=== PATIENT | male | born 2000 | race Caucasian/White ===

== ENCOUNTER 2021-05-13 16:29 | Emergency (ER) | payer MEDICAID, SELFPAY ==
--- NOTE | 2021-05-13 | ECG_ITS ---
Test Reason : CP Blood Pressure : / mmHG Vent. Rate : 071 BPM Atrial Rate : 071 BPM P-R Int : 152 ms QRS Dur : 088 ms QT Int : 364 ms P-R-T Axes : 062 060 035 degrees QTc Int : 395 ms Normal sinus rhythm with sinus arrhythmia Normal ECG No previous ECGs available Referred By: Generic ED Physician Electronically Signed By:MEHDI MEYER
--- NOTE | ~2021-05-13 | XR_ITS ---
EXAMINATION: XR CHEST CLINICAL INFORMATION: Chest wall pain COMPARISON: None TECHNIQUE: Frontal view of the chest was obtained. FINDINGS: No significant abnormality is noted involving the heart, lungs, mediastinum, bony thorax or soft tissues. XR/XR chest 1V IMPRESSION: Unremarkable examination.
[2021-05-13 16:39] VITALS: BP 120/81; PULSE 69; RESP 16; TEMP 36.6; O2SAT 98; BMI 22.3
--- NOTE | 2021-05-13 17:38 | ED.CHESTPAIN ---
HPI - Chest Pain General Chief Complaint: Chest Pain Stated Complaint: cp Time Seen by Provider: 05/13/21 17:20 Source: patient Mode of arrival: ambulatory History of Present Illness HPI narrative: 20-year-old male with no significant past medical history presenting to the ED complaining of 2-3 days of mid sternal chest wall pain, worse with bending and palpation. Admits pain started after heavy lifting at work. Reports lifts multiple heavy boxes at work. Denies SOB, cough, fever, chills, LE edema, recent travel, cigarette smoking Related Data Previous Rx's Medication Instructions Recorded acetaminophen 500 mg tablet 500 mg PO Q6H PRN #20 tab 05/13/21 (Tylenol Extra Strength) lidocaine 5 % topical patch 1 patch TOPICAL DAILY PRN #30 ea 05/13/21 (Lidoderm) MDD remove after 12 hours naproxen 500 mg tablet 500 mg PO BID PRN 10 Days #20 tab 05/13/21 Allergies Allergy/AdvReac Type Severity Reaction Status Date / Time No Known Allergies Allergy Verified 05/13/21 16:41 Review of Systems Review of Systems: Constitutional: No Fever, No Chills, No Fatigue, No Malaise ENT/Mouth: No Ear Pain, No Nasal Congestion, No Sinus Pain, No sore throat Eyes: No Eye Pain, No Swelling, No Redness, No Foreign Body, No Discharge, No Vision Changes Cardiovascular:+ Chest Wall Pain, No SOB, No Palpitations Respiratory: No Cough, No Dyspnea Gastrointestinal: No Nausea, No Vomiting, No Diarrhea, No Abdominal pain Musculoskeletal: No joint pain, No Myalgias Skin: No Skin Lesions, No rash Neuro: No Weakness, No Numbness, No Headache Yes all other systems are reviewed and are negative [facility] Past Medical History Attestation statement: The following information was validated with the patient. Social History Social History Advance Directives: No Advance Directives Information Provided: No Physical Exam Vital Signs: Vital Signs: Last Vital Signs Temp 97.8 F 05/13/21 16:39 Pulse 69 05/13/21 16:39 Resp 16 05/13/21 16:39 BP 120/81 05/13/21 16:39 Pulse Ox 98 05/13/21 16:39 Body Mass Index 22.3 Const: General: cooperative and healthy appearing Orientation/consciousness: patient oriented x3 Limitations: no limitations HENMT: Head: Yes normal to inspection Ears: hearing grossly normal bilaterally General nose exam: Normal external nose present Face and sinus: Yes normal facial exam Eyes: General: appearance normal, both eyes and all related structures EOM: EOMs intact bilaterally Neck: Neck: Yes normal visual inspection Chest: Chest palpation & inspection: normal inspection of the chest, no crepitus and tenderness (Reproducing subjective complaint) sternum Resp: Effort & Inspection: normal respiratory effort Auscultation: clear to auscultation bilaterally, no rales, no rhonchi and no wheezes Cardio: Rate: regular rate Heart sounds: S1 normal heart sound present and S2 normal heart sound present Skin: Rashes: no rashes Wounds: no wounds Neuro: General: patient oriented x3 Gait exam (Neuro): Normal gait present Extrem: General: Yes normal to inspection, Yes no pedal edema and Yes no calf tenderness Course Course Course Narrative: -COVID-19 negative -chest x-ray is unremarkable > discussed with patient he likely has costochondritis, worrisome signs and symptoms and strict return precautions discussed, he verbalized understanding feel safe for discharge home to follow-up with his PCP MDM - Chest Pain MDM Narrative Medical decision making narrative: 20-year-old male with no significant past medical history presenting to the ED complaining of 2-3 days of mid sternal chest wall pain, worse with bending and palpation. Admits pain started after heavy lifting at work. On exam VSS, NAD/well-appearing, pain is reproducible on exam, lungs CTA, no pedal edema or calf tenderness. Likely costochondritis/MSK pain. Rule out pneumonia. Symptoms atypical for PE/ACS Plan: COVID-19 testing, CXR, EKG Medical Records Data Attestation: I reviewed the patient's medical records. Lab Data Attestation: I reviewed the patient's lab results. Labs: Lab Results 05/13/21 Range/Units 17:50 COVID-19 ([facility]) Negative (Negative) COVID-19 Clin Com See Note ECG Data ECG #1: Attestation: I personally reviewed and interpreted this ECG as follows: ECG interpretation date: 05/13/21 ECG interpretation time: 16:36 Interpretation: EKG normal sinus rhythm with a rate of 71. Nonischemic/no STEMI. QTC 395 Discharge Plan Discharge Clinical Impression: Costalchondritis Patient Disposition: Home, Self-Care Instructions: Costochondritis (ED) Additional Instructions: Your chest x-ray was unremarkable You tested negative for COVID-19 Naproxen as an anti-inflammatory/pain medication, please take with food In addition take Tylenol Lidoderm patches or numbing patches, apply to painful area You may ice your area Rest If your pain persists or worsens/becomes unbearable, if shortness of breath, or fever please return to the ED Prescriptions: New acetaminophen [Tylenol Extra Strength] 500 mg tablet 500 mg PO Q6H PRN (Reason: pain or fever) Qty: 20 RF: 0 lidocaine [Lidoderm] 5 % adhesive patch,medicated 1 patch topical DAILY MDD remove after 12 hours PRN (Reason: pain) Qty: 30 RF: 0 naproxen 500 mg tablet 500 mg PO BID PRN (Reason: pain) 10 Days Qty: 20 RF: 0 Referrals: Physician,Unknown [Primary Care Provider] - 2 days Stand Alone Forms: Work/School Release
[2021-05-13 18:13] LABS: COVID-19 Test Negative (Negative)
== END 2021-05-13 20:00 | disposition home or self-care (01) ==
PROVIDERS: Physician Assistant; Emergency Provider Internal Medicine
DX: M94.0 Chondrocostal junction syndrome [Tietze] (principal); Z20.822 Contact with and (suspected) exposure to COVID-19
CPT/HCPCS: 36415; 71045; 87635; 93005; 99283; 99284

== ENCOUNTER 2021-05-31 19:04 | Emergency (ER) | payer OTHER, MEDICAID, SELFPAY ==
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
[2021-05-31 19:10] VITALS: BP 118/72; PULSE 110; O2SAT 100
[2021-05-31 19:24] VITALS: BP 111/71; PULSE 101; RESP 16; TEMP 36.6; O2SAT 98; BMI 22.3
[2021-05-31] MEDS: Ibuprofen 600 MG TABLET PO (21:08)
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
[2021-05-31 22:43] VITALS: BP 118/68; PULSE 71; RESP 16; O2SAT 98
[2021-06-01 00:23] VITALS: BP 124/77; PULSE 80; RESP 18; TEMP 36.7; O2SAT 98
== END 2021-06-01 00:50 | disposition home or self-care (01) ==
PROVIDERS: Emergency Provider Emergency Medicine
DX: S39.011A Strain of muscle, fascia and tendon of abdomen, initial encounter (principal); S80.01XA Contusion of right knee, initial encounter; M25.561 Pain in right knee; M25.562 Pain in left knee; M79.642 Pain in left hand; M79.641 Pain in right hand; M25.551 Pain in right hip; V23.4XXA Motorcycle driver injured in collision with car, pick-up truck or van in traffic accident, initial encounter; Y93.9 Activity, unspecified; Y92.410 Unspecified street and highway as the place of occurrence of the external cause; Y99.9 Unspecified external cause status; Z79.899 Other long term (current) drug therapy
CPT/HCPCS: 73130; 73502; 73562; 73564; 99284

== ENCOUNTER 2021-11-17 23:47 | Emergency (ER) | payer MEDICAID, SELFPAY ==
[2021-11-17 23:48] VITALS: BP 125/78; PULSE 67; RESP 18; TEMP 36.8; O2SAT 100; BMI 23.0
--- NOTE | 2021-11-18 00:18 | ED.EXTPRO ---
HPI - Extremity Problem General Chief complaint: Back Pain/Injury Stated complaint: back pain Time Seen by Provider: 11/18/21 00:07 Source: patient Mode of arrival: ambulatory Limitations: no limitations History of Present Illness HPI Narrative: Patient comes with right colon spasm for last 3 days after playing basketball complaining of low back pain which is going on for long time no weakness patient able to ambulate otherwise no paresthesia Related Data Previous Rx's Medication Instructions Recorded acetaminophen 500 mg tablet 500 mg PO Q6H PRN #20 tab 05/13/21 (Tylenol Extra Strength) lidocaine 5 % topical patch 1 patch TOPICAL DAILY PRN #30 ea 05/13/21 (Lidoderm) MDD remove after 12 hours naproxen 500 mg tablet 500 mg PO BID PRN 10 Days #20 tab 05/13/21 cyclobenzaprine 10 mg tablet 10 mg PO TID PRN #20 tab 06/01/21 ibuprofen 800 mg tablet 800 mg PO Q8H PRN #30 tab 06/01/21 cyclobenzaprine 10 mg tablet 10 mg PO Q8H #20 tab 11/18/21 ibuprofen 600 mg tablet 600 mg PO Q6H PRN #20 tab 11/18/21 Allergies Allergy/AdvReac Type Severity Reaction Status Date / Time No Known Allergies Allergy Verified 11/17/21 23:48 Review of Systems Review of Systems: Yes all other systems are reviewed and are negative [facility] Social History Social History Advance Directives: No Physical Exam Vital Signs: Vital Signs: Last Vital Signs Temp 98.3 F 11/17/21 23:48 Pulse 67 11/17/21 23:48 Resp 18 11/17/21 23:48 BP 125/78 11/17/21 23:48 Pulse Ox 100 11/17/21 23:48 BMI result Body Mass Index 23.0 Appearance: Alert. Oriented X3. No acute distress. CVS: Normal heart rate and rhythm. Pulses normal. Respiratory: No respiratory distress. Equal air entry bilateral, Abdomen: Soft and nontender. Bowel sounds are present, no mass palpable, no CVA tenderness Skin: Skin warm and dry. Normal skin color. Normal skin turgor. Extremities: No lower extremity edema. No calf tenderness tenderness in the right groin area increases on adduction and flexion of right thigh back: Diffuse tenderness no focal tenderness SLR negative bilaterally Neuro: Oriented X 3. No motor deficit. No sensory deficit. Discharge Plan Discharge Clinical Impression: Strain of right psoas muscle Patient Disposition: Home, Self-Care Instructions: Groin Strain (ED) Additional Instructions: Rest to your right leg apply ice pack take pain medication and muscle relaxants as advised Prescriptions: New cyclobenzaprine 10 mg tablet 10 mg PO Q8H Qty: 20 0RF ibuprofen 600 mg tablet 600 mg PO Q6H PRN (Reason: pain) Qty: 20 0RF No Action acetaminophen [Tylenol Extra Strength] 500 mg tablet 500 mg PO Q6H PRN (Reason: pain or fever) Qty: 20 0RF lidocaine [Lidoderm] 5 % adhesive patch,medicated 1 patch topical DAILY MDD remove after 12 hours PRN (Reason: pain) Qty: 30 0RF Rx Instructions: leave on most painful area for up to 12 hrs naproxen 500 mg tablet 500 mg PO BID PRN (Reason: pain) 10 Days Qty: 20 0RF ibuprofen 800 mg tablet 800 mg PO Q8H PRN (Reason: pain) Qty: 30 0RF cyclobenzaprine 10 mg tablet 10 mg PO TID PRN (Reason: muscle spasm) Qty: 20 0RF
[2021-11-18] MEDS: Ibuprofen 600 MG TABLET PO (00:53)
[2021-11-18] MEDS: Cyclobenzaprine HCl 10 MG TABLET PO (00:53)
== END 2021-11-18 00:54 | disposition home or self-care (01) ==
PROVIDERS: Emergency Provider Internal Medicine
DX: S76.011A Strain of muscle, fascia and tendon of right hip, initial encounter (principal); X50.1XXA Overexertion from prolonged static or awkward postures, initial encounter; Y93.67 Activity, basketball; Y92.310 Basketball court as the place of occurrence of the external cause; Y99.9 Unspecified external cause status
CPT/HCPCS: 99283

== ENCOUNTER 2022-03-25 03:16 | Emergency (ER) | payer MEDICAID, SELFPAY ==
[2022-03-25 03:52] VITALS: BP 126/80; PULSE 67; RESP 20; TEMP 36.9; O2SAT 98; BMI 22.4
[2022-03-25 04:22] LABS: Strep A Nucleic Acid Negative (Negative)
[2022-03-25 04:33] LABS: COVID-19 Test Negative (Negative); IDNOW Serial# 16C4AD1C
--- NOTE | 2022-03-25 06:45 | ED_ITS ---
HPI - URI/Sore Throat General Chief Complaint: General Medical Stated Complaint: throat pain, can't swallow Time Seen by Provider: 03/25/22 06:44 Source: patient Mode of arrival: ambulatory Limitations: no limitations History of Present Illness MD elicited complaint: sore throat Onset (ago): day(s) (5) Consistency: constant Severity: severe Description of mucous: clear Able to tolerate fluids by mouth: Yes Exacerbating factors: swallowing Relieving factors: nothing Associated symptoms: denies other symptoms Treatments prior to arrival: none Related Data Previous Rx's Medication Instructions Recorded acetaminophen 500 mg tablet 500 mg PO Q6H PRN pain or fever 05/13/21 (Tylenol Extra Strength) #20 tabs lidocaine 5 % topical patch 1 patch topical DAILY PRN pain #30 05/13/21 (Lidoderm) ea naproxen 500 mg tablet 500 mg PO BID PRN pain 10 days #20 05/13/21 tabs cyclobenzaprine 10 mg tablet 10 mg PO TID PRN muscle spasm #20 06/01/21 tabs ibuprofen 800 mg tablet 800 mg PO Q8H PRN pain #30 tabs 06/01/21 cyclobenzaprine 10 mg tablet 10 mg PO Q8H #20 tabs 11/18/21 ibuprofen 600 mg tablet 600 mg PO Q6H PRN pain #20 tabs 11/18/21 amoxicillin 500 mg capsule 500 mg PO BID 7 days #14 caps 03/25/22 Allergies Allergy/AdvReac Type Severity Reaction Status Date / Time No Known Allergies Allergy Verified 11/17/21 23:48 Review of Systems Review of Systems: Constitutional : No Fever, No Chills ENT/Mouth : pos sore throat, No Rhinorrhea Eyes: No Eye Pain, No Swelling, No Redness Cardiovascular : No Chest Pain, No SOB Respiratory : No Cough, No Sputum, No Wheezing Gastrointestinal : No Nausea, No Vomiting, No Diarrhea Genitourinary : No Dysuria, No Urinary Frequency, No Hematuria, Musculoskeletal : No joint pain, No Myalgias, No Joint Swelling Skin : No Skin Lesions, No rash Neuro : No Weakness, No Numbness, No Dizziness, No Headache Psych : No Anxiety/Panic, No Depression All other systems reviewed and are negative [facility] Past Medical History Attestation statement: The following information was validated with the patient. Medical History No pertinent past medical history Social History Social History (Updated 03/25/22 @ 07:08 by Ellen Moran DO) Patient Tobacco Use Status: Never used Tobacco Advance Directives: No Advance Directives Information Provided: No Physical Exam Vital Signs: Vital Signs: Last Vital Signs Temp 98.4 F 03/25/22 03:52 Pulse 67 03/25/22 03:52 Resp 20 03/25/22 03:52 BP 126/80 03/25/22 03:52 Pulse Ox 98 03/25/22 03:52 O2 Del Method 03/25/22 03:52 BMI result Body Mass Index 22.4 Appearance: Alert. Oriented X3. No acute distress. Eyes: Pupils equal, round and reactive to light. ENT: Pharynx moderate bilateral tonsilar swelling no exudates, marked erythema, uvula midline - tolerating secretions Neck: Normal inspection. Neck supple. full ROM CVS: Normal heart rate and rhythm. Pulses normal. Respiratory: No respiratory distress. Breath sounds normal. Abdomen: Soft and nontender. Skin: Skin warm and dry. Normal skin color. Normal skin turgor. Extremities: No lower extremity edema. No calf ttp Neuro: Oriented X 3. No motor deficit. No sensory deficit. MDM - URI/Sore Throat MDM Narrative Medical decision making narrative: 21 yo male with no sig PMH here with c/o sore throat - covid and strep negative, no signs of [employer] on exam. Will send off mono test if negative will treat for pharngitis - dispo per results and findings. Lab Data Labs: Lab Results 03/25/22 03/25/22 03/25/22 Range/Units 03:57 04:02 07:00 COVID-19 ([facility]) Negative (Negative) COVID-19 Clin Com See Note Monoscreen Negative (Negative) S. pyogenes GrpA AUNG Negative (Negative) Discharge Plan Discharge Clinical Impression: Pharyngitis Patient Disposition: Home, Self-Care Instructions: Pharyngitis (ED) Additional Instructions: return to ED for any worsening symptoms or concerns COVID flu and MONO were NEGATIVE Prescriptions: New amoxicillin 500 mg capsule 500 mg PO BID 7 Days Qty: 14 0RF No Action acetaminophen [Tylenol Extra Strength] 500 mg tablet 500 mg PO Q6H PRN (Reason: pain or fever) Qty: 20 0RF lidocaine [Lidoderm] 5 % adhesive patch,medicated 1 patch topical DAILY MDD remove after 12 hours PRN (Reason: pain) Qty: 30 0RF Rx Instructions: leave on most painful area for up to 12 hrs naproxen 500 mg tablet 500 mg PO BID PRN (Reason: pain) 10 Days Qty: 20 0RF ibuprofen 800 mg tablet 800 mg PO Q8H PRN (Reason: pain) Qty: 30 0RF cyclobenzaprine 10 mg tablet 10 mg PO TID PRN (Reason: muscle spasm) Qty: 20 0RF cyclobenzaprine 10 mg tablet 10 mg PO Q8H Qty: 20 0RF ibuprofen 600 mg tablet 600 mg PO Q6H PRN (Reason: pain) Qty: 20 0RF Stand Alone Forms: Work/School Release
[2022-03-25 07:32] LABS: Monotest Negative (Negative)
== END 2022-03-25 07:42 | disposition home or self-care (01) ==
PROVIDERS: Emergency Provider Emergency Medicine
DX: J02.9 Acute pharyngitis, unspecified (principal); Z20.822 Contact with and (suspected) exposure to COVID-19
CPT/HCPCS: 36415; 86308; 87635; 87651; 99283; 99284

== ENCOUNTER 2023-04-21 00:50 | Emergency (ER) | payer OTHER, SELFPAY ==
[2023-04-21 00:57] VITALS: BP 124/80; PULSE 57; RESP 20; TEMP 36.4; O2SAT 98; BMI 23.7
[2023-04-21 01:58] LABS: Hematocrit 44.8 % (42.0-52.0); Hemoglobin 15.4 g/dl (14.0-18.0); Mean Corpuscular HGB Conc 34.4 g/dl (31.0-36.0); Mean Corpuscular Hemoglobin 29.2 pg (27.0-33.0); Mean Platelet Volume 10.1 fL (9.4-12.4); Platelet Count 187 X10*3/uL (160-400); Red Blood Count 5.27 X10*6/uL (4.60-5.80); Red Cell Distribution Width 12.4 % (11.0-16.0); White Blood Count 6.1 X10*3/uL (4.8-10.8)
[2023-04-21] MEDS: Ketorolac Tromethamine 15 MG/ML VIAL IVPUSH (01:58)
[2023-04-21] MEDS: ondansetron HCL 4 MG/2 ML VIAL IVPUSH (01:58)
[2023-04-21] MEDS: Lactated Ringers 1,000 ML 999 ML IV (02:03)
--- NOTE | 2023-04-21 02:10 | ED_ITS ---
HPI - Abdominal Pain General Chief Complaint: Abdominal Pain Stated Complaint: gen med Time Seen by Provider: 04/21/23 01:42 Source: patient Mode of arrival: ambulatory Limitations: no limitations History of Present Illness HPI narrative: nausea diarrhea abdominal cramps one hour after eating anh friend chicken no fevers no blood in stool MD elicited complaint: abdominal pain Pertinent past history: none Onset (ago): hour(s) (1) Pain Consistency: intermittent Location: diffuse Severity: mild Quality: cramping Radiation: none Migration to: no migration Exacerbating factors: eating Relieving factors: nothing Context: possible food poisoning Associated symptoms: nausea and diarrhea Related Data Previous Rx's Medication Instructions Recorded acetaminophen 500 mg tablet 500 mg PO Q6H PRN pain or fever 05/13/21 (Tylenol Extra Strength) #20 tabs lidocaine 5 % topical patch 1 patch topical DAILY PRN pain #30 05/13/21 (Lidoderm) ea naproxen 500 mg tablet 500 mg PO BID PRN pain 10 days #20 05/13/21 tabs cyclobenzaprine 10 mg tablet 10 mg PO TID PRN muscle spasm #20 06/01/21 tabs ibuprofen 800 mg tablet 800 mg PO Q8H PRN pain #30 tabs 06/01/21 cyclobenzaprine 10 mg tablet 10 mg PO Q8H #20 tabs 11/18/21 ibuprofen 600 mg tablet 600 mg PO Q6H PRN pain #20 tabs 11/18/21 amoxicillin 500 mg capsule 500 mg PO BID 7 days #14 caps 03/25/22 ondansetron 4 mg disintegrating 4 mg PO Q8H PRN nausea and 04/21/23 tablet vomiting #20 tabs Allergies Allergy/AdvReac Type Severity Reaction Status Date / Time No Known Allergies Allergy Verified 11/17/21 23:48 Review of Systems Review of Systems Constitutional : No Weight loss, No Fever, No Chills ENT/Mouth : No sore throat, No Rhinorrhea Eyes: No Swelling, No Redness Cardiovascular : No Chest Pain, No SOB, NoEdema Respiratory : No Cough, No Sputum, No Wheezing Gastrointestinal : Positive Nausea, no Vomiting, positive Diarrhea, positive abdominal Pain, No Hematochezia, No Melena Genitourinary : No Dysuria, No Urinary Frequency, No Hematuria, No Urgency Musculoskeletal : No joint pain, No Myalgias, No Joint Swelling Skin : No Skin Lesions, No rash Neuro : No Weakness, No Numbness, No Dizziness, No Headache All other systems reviewed and are negative. [facility] Past Medical History Attestation statement: The following information was validated with the patient. Medical History No pertinent past medical history Social History Social History Patient Tobacco Use Status: Never used Tobacco Advance Directives: No Advance Directives Information Provided: No Physical Exam ED Vital Signs: Vital Signs - 24 hr 04/21/23 00:57 Temperature 97.5 F Pulse Rate 57 Respiratory Rate 20 Blood Pressure 124/80 Pulse Oximetry 98 Oxygen Delivery Method Room Air BMI result Body Mass Index 23.7 Appearance: Alert. Oriented X3. No acute distress. Eyes: Pupils equal, round and reactive to light. ENT: Pharynx normal. Neck: Normal inspection. Neck supple. CVS: Normal heart rate and rhythm. Pulses normal. Respiratory: No respiratory distress. Breath sounds normal. Abdomen: Soft and nontender. Skin: Skin warm and dry. Normal skin color. Normal skin turgor. Extremities: No lower extremity edema. No calf ttp Neuro: Oriented X 3. No motor deficit. No sensory deficit. Course Course Course Narrative: feels better stable for DC Medical Decision Making Medical Decision Making MDM Narrative: 22 yo male with no sig PMH here with nausea and diarrhea post eating fried chicken 1 hour later - at this time not toxic, no localized pain, no bloody stools and no fevers - stable for DC if labs stable, supportive medications ordered suspect food toxicity vs viral syndrome. Differential Diagnosis Differential Diagnoses: The differential diagnosis associated with the presentation includes food poisoning, gastritis, viral syndrome Admission/Observation Consideration of admission/observation: Escalation of care including admissi on/observation considered labs and VS stable, tolerating PO can be DC home Lab Data [facility] Lab Attestation statement: I reviewed the patient's lab results. 04/21/23 01:53 04/21/23 01:53 Labs: Lab Results 04/21/23 04/21/23 Range/Units 01:53 01:53 WBC 6.1 (4.8-10.8) X10*3/uL RBC 5.27 (4.60-5.80) X10*6/uL Hgb 15.4 (14.0-18.0) g/dl Hct 44.8 (42.0-52.0) % MCV 85.0 (80.0-98.0) fL MCH 29.2 (27.0-33.0) pg MCHC 34.4 (31.0-36.0) g/dl RDW 12.4 (11.0-16.0) % Plt Count 187 (160-400) X10*3/uL MPV 10.1 (9.4-12.4) fL Absolute Nucleated RBC 0.000 (0.0-0.012) X10*3/uL Nucleated RBC % (auto) 0.0 (0.0-0.2) /100WBC Sodium 141 (135-145) mmol/L Potassium 3.9 (3.3-5.1) mmol/L Chloride 108 (96-108) mmol/L Carbon Dioxide 23 (22-29) mmol/L Anion Gap 14 (12-20) BUN 7 L (9-16) mg/dL Creatinine 0.83 (0.5-1.4) mg/dL Estim Creat Clear Calc 150.6 Estimated GFR > 60 Random Glucose 91 (60-115) mg/dL Calcium 9.7 (8.4-10.2) mg/dL Total Bilirubin 0.5 (0.0-1.0) mg/dL AST 18 (5-37) U/L ALT 11 (0-40) U/L Alkaline Phosphatase 95 (39-117) U/L Total Protein 7.6 (6.5-8.0) g/dL Albumin 4.6 (3.5-5.0) g/dL Lipase 34 (8-78) U/L External Record Review External record reviewed: Inpatient record Prescription Management I considered prescription management with: Other (zofran) Medications Administered Generic Name Dose Route Start Last Admin Trade Name Freq PRN Reason Stop Dose Admin Lactated Ringer's 1,000 mls @ 999 mls/hr 04/21/23 02:00 04/21/23 02:03 Lr IV 04/21/23 03:00 999 mls/hr .Q1H1M LILLIANA Administration Discontinued Medications Generic Name Dose Route Start Last Admin Trade Name Freq PRN Reason Stop Dose Admin Ketorolac Tromethamine 15 mg 04/21/23 01:46 04/21/23 01:58 Ketorolac Tromethamine 15 Mg/Ml Vial IVPUSH 04/21/23 01:47 15 mg ONCE ONE Administration Ondansetron HCl 4 mg 04/21/23 01:46 04/21/23 01:58 Ondansetron Hcl 4 Mg/2 Ml Vial IVPUSH 04/21/23 01:47 4 mg ONCE ONE Administration Discharge Plan Discharge Clinical Impression: Nausea Diarrhea Qualifiers: Diarrhea type: presumed infectious Qualified Code(s): R19.7 - Diarrhea, unspecified Patient Disposition: Home, Self-Care Instructions: Acute Nausea and Vomiting (ED), Acute Diarrhea (ED) Additional Instructions: return for fevers, vomiting, bloody stools, inability to eat or drinking, worsenign pain or any other concerns. advance diet slowly over next 48 hours Prescriptions: New ondansetron 4 mg tablet,disintegrating 4 mg PO Q8H PRN (Reason: nausea and vomiting) Qty: 20 0RF No Action acetaminophen [Tylenol Extra Strength] 500 mg tablet 500 mg PO Q6H PRN (Reason: pain or fever) Qty: 20 0RF lidocaine [Lidoderm] 5 % adhesive patch,medicated 1 patch topical DAILY MDD remove after 12 hours PRN (Reason: pain) Qty: 30 0RF Rx Instructions: leave on most painful area for up to 12 hrs naproxen 500 mg tablet 500 mg PO BID PRN (Reason: pain) 10 Days Qty: 20 0RF ibuprofen 800 mg tablet 800 mg PO Q8H PRN (Reason: pain) Qty: 30 0RF cyclobenzaprine 10 mg tablet 10 mg PO TID PRN (Reason: muscle spasm) Qty: 20 0RF cyclobenzaprine 10 mg tablet 10 mg PO Q8H Qty: 20 0RF ibuprofen 600 mg tablet 600 mg PO Q6H PRN (Reason: pain) Qty: 20 0RF amoxicillin 500 mg capsule 500 mg PO BID 7 Days Qty: 14 0RF
[2023-04-21 02:11] LABS: Alanine Aminotransferase 11 U/L (0-40); Albumin Level 4.6 g/dL (3.5-5.0); Alkaline Phosphatase 95 U/L (39-117); Anion Gap 14 (12-20); Aspartate Amino Transferase 18 U/L (5-37); Bilirubin Total 0.5 mg/dL (0.0-1.0); Blood Urea Nitrogen 7 mg/dL (9-16); Calcium 9.7 mg/dL (8.4-10.2); Carbon Dioxide 23 mmol/L (22-29); Chloride 108 mmol/L (96-108); Creatinine Clr Calc Pharmacy 150.6; Estimated Glomerular Filt Rate > 60; Glucose Random 91 mg/dL (60-115); Lipase 34 U/L (8-78); Potassium 3.9 mmol/L (3.3-5.1); Sodium 141 mmol/L (135-145); Total Protein 7.6 g/dL (6.5-8.0)
== END 2023-04-21 02:51 | disposition home or self-care (01) ==
PROVIDERS: Emergency Provider Emergency Medicine
DX: R19.7 Diarrhea, unspecified (principal); R11.2 Nausea with vomiting, unspecified; Z79.899 Other long term (current) drug therapy
CPT/HCPCS: 36415; 80053; 83690; 85027; 96361; 96374; 96375; 99283; 99284; J1885; J2405

== ENCOUNTER 2023-07-20 16:26 | Emergency (ER) | payer OTHER, SELFPAY ==
--- NOTE | ~2023-07-20 | XR_ITS ---
EXAMINATION: XR CERVICAL SPINE CLINICAL INFORMATION: Neck pain COMPARISON: None available. TECHNIQUE: 3 views of the cervical spine were obtained. FINDINGS: There is reversal of the normal cervical lordosis. No prevertebral soft tissue swelling, fractures or subluxations are seen. Disc spaces and vertebral body heights are well-maintained. XR/XR cervical spine 3V IMPRESSION: Reversal of normal cervical lordosis. No acute finding.
[2023-07-20 16:36] VITALS: BP 142/80; PULSE 70; RESP 18; TEMP 36.9; O2SAT 100; BMI 24.4
--- NOTE | 2023-07-20 16:36 | ED.NECK ---
HPI - Neck Pain/Injury General Chief Complaint: Neck Pain/Injury Stated Complaint: Neck pain Time Seen by Provider: 07/20/23 18:14 Source: patient Mode of arrival: ambulatory Limitations: no limitations History of Present Illness HPI Narrative: Patient comes to the emergency room complaining of bilateral neck pain and bilateral suprascapular pain. Patient states that the pain started after weightlifting. Patient denies any numbness or tingling to upper or lower extremities. Patient took Tylenol without any relief. Patient denies headache Related Data Previous Rx's Medication Instructions Recorded acetaminophen 500 mg tablet 500 mg PO Q6H PRN pain or fever 05/13/21 (Tylenol Extra Strength) #20 tabs lidocaine 5 % topical patch 1 patch topical DAILY PRN pain #30 05/13/21 (Lidoderm) ea naproxen 500 mg tablet 500 mg PO BID PRN pain 10 days #20 05/13/21 tabs cyclobenzaprine 10 mg tablet 10 mg PO TID PRN muscle spasm #20 06/01/21 tabs ibuprofen 800 mg tablet 800 mg PO Q8H PRN pain #30 tabs 06/01/21 cyclobenzaprine 10 mg tablet 10 mg PO Q8H #20 tabs 11/18/21 ibuprofen 600 mg tablet 600 mg PO Q6H PRN pain #20 tabs 11/18/21 amoxicillin 500 mg capsule 500 mg PO BID 7 days #14 caps 03/25/22 ondansetron 4 mg disintegrating 4 mg PO Q8H PRN nausea and 04/21/23 tablet vomiting #20 tabs cyclobenzaprine 10 mg tablet 10 mg PO TID PRN muscle spasm #10 07/20/23 tabs ibuprofen 600 mg tablet 600 mg PO Q8H PRN fever or pain 07/20/23 #14 tabs Allergies Allergy/AdvReac Type Severity Reaction Status Date / Time No Known Allergies Allergy Verified 11/17/21 23:48 Review of Systems Review of Systems: Constitutional : No Weight loss, No Fever, No Chills, No Night Sweats, No Fatigue, No Malaise ENT/Mouth : No Hearing loss, No Ear Pain, No Nasal Congestion, No Sinus Pain, No Hoarseness, No sore throat, No Rhinorrhea, No Swallowing Difficulty Eyes: No Eye Pain, No Swelling, No Redness, No Foreign Body, No Discharge, No Vision Changes Cardiovascular : No Chest Pain, No SOB, No Dyspnea on Exertion, No Orthopnea, No Edema, No Palpitations Respiratory : No Cough, No Sputum, No Wheezing, No Smoke Exposure, No Dyspnea Gastrointestinal : No Nausea, No Vomiting, No Diarrhea, No Constipation, No abdominal Pain, No Hematochezia, No Melena Genitourinary : no irregular bleeding, No Dysuria, No Urinary Frequency, No Hematuria, No Urinary Incontinence, No Urgency, No Flank Pain, No Urinary Flow Changes, No Hesitancy Musculoskeletal : Complaining of musculoskeletal pain bilateral neck and bilateral scapular pain, No joint pain, No Myalgias, No Joint Swelling Skin : No Skin Lesions, No rash Neuro : No Weakness, No Numbness, No Paresthesias, No Loss of Consciousness, No Dizziness, No Headache Psych : No Anxiety/Panic, No Depression, No SI/HI/AH/VH, No Social Issues, Heme/Lymph: No Bruising, No Bleeding,No Lymphadenopathy Endocrine : No Polyuria, No Polydipsia, No Temperature Intolerance PMFSH Past Medical History Medical History No pertinent past medical history Social History Social History Patient Tobacco Use Status: Never used Tobacco Smoked in Last 30 Days: No Use of substances other than those prescribed or required for medical reasons: No Advance Directives: No Advance Directives Information Provided: No Physical Exam Vital Signs: Vital Signs: Last Vital Signs Temp 98.4 F 07/20/23 16:36 Pulse 70 07/20/23 16:36 Resp 18 07/20/23 16:36 BP 142/80 H 07/20/23 16:36 Pulse Ox 100 07/20/23 16:36 O2 Del Method Room Air 07/20/23 16:36 BMI result Body Mass Index 24.4 Const: Other: Appearance: Alert. Oriented X3. No acute distress. Well-appearing Eyes: Pupils equal, round and reactive to light. ENT: Pharynx normal. Neck: Normal inspection. Neck supple. No lymph nodes noted. No crepitus, no C-spine tenderness, no palpable step-offs CVS: Normal heart rate and rhythm. Pulses normal. Normal S1 and S2 Respiratory: No respiratory distress. Breath sounds normal. No Wheezing. No rales Abdomen: Soft and nontender. No rigidity. No distention. Skin: Skin warm and dry. Normal skin color. Normal skin turgor. Musculoskeletal: Pain to palpation in the trapezius distribution bilaterally Extremities: No lower extremity edema. No Lacerations. No Rash Neuro: Oriented X 3. No motor deficit. No sensory deficit. Moving all extremities. No slurred speech. CN 2 through 12 grossly intact Psych: calm, cooperative, normal affect Course Course Course Narrative: This is an RME: Additional HPI, ROS, PE not included below will be deferred to primary provider. Patient is a 22 old male who presents emergency department for evaluation of neck pain. Reports onset of symptoms at 0400 after working out, was lifing weights, felt a pop in the neck, pain is felt diffusely throughout the neck, to the bilateral shoulders, subjective weakness to both hands. Did not take any OTC pain medication [employer]. Reports pain 20/10. TTP throughout posterior neck and paraspinal/trapezius muscles Plan: pain management, XR Medications Administered Discontinued Medications Generic Name Dose Route Start Last Admin Trade Name Dar PRN Reason Stop Dose Admin Acetaminophen 975 mg 07/20/23 16:39 07/20/23 16:41 Acetaminophen 325 Mg Tablet PO 07/20/23 16:40 975 mg ONCE ONE Administration Ibuprofen 600 mg 07/20/23 16:39 07/20/23 16:41 Ibuprofen 600 Mg Tablet PO 07/20/23 16:40 600 mg ONCE ONE Administration Medical Decision Making Medical Decision Making [facility] Narrative: -my interpretation of x-ray of the neck, no acute abnormalities Differential Diagnosis Differential Diagnoses: The differential diagnosis associated with the presentation includes (Cervical spine strain, musculoskeletal pain,) Independent Interpretation I performed an independent interpretation of an: Plain X-Ray Radiology Impression Discussion of test interpretation with radiology: I have reviewed the radiologist's reading. Radiologist Impression: FINDINGS: There is reversal of the normal cervical lordosis. No prevertebral soft tissue swelling, fractures or subluxations are seen. Disc spaces and vertebral body heights are well-maintained. XR/XR cervical spine 3V IMPRESSION: Reversal of normal cervical lordosis. No acute finding. Discharge Plan Discharge Clinical Impression: Musculoskeletal strain Patient Disposition: Home, Self-Care Instructions: Musculoskeletal Pain (ED) Additional Instructions: Please follow-up with your primary care physician tomorrow. If you have any worsening or new symptoms, please return to the emergency room or call 911 Prescriptions: New ibuprofen 600 mg tablet 600 mg PO Q8H PRN (Reason: fever or pain) Qty: 14 0RF cyclobenzaprine 10 mg tablet 10 mg PO TID PRN (Reason: muscle spasm) Qty: 10 0RF Rx Instructions: Do not use this medication before working or driving No Action acetaminophen [Tylenol Extra Strength] 500 mg tablet 500 mg PO Q6H PRN (Reason: pain or fever) Qty: 20 0RF lidocaine [Lidoderm] 5 % adhesive patch,medicated 1 patch topical DAILY MDD remove after 12 hours PRN (Reason: pain) Qty: 30 0RF Rx Instructions: leave on most painful area for up to 12 hrs naproxen 500 mg tablet 500 mg PO BID PRN (Reason: pain) 10 Days Qty: 20 0RF ibuprofen 800 mg tablet 800 mg PO Q8H PRN (Reason: pain) Qty: 30 0RF cyclobenzaprine 10 mg tablet 10 mg PO TID PRN (Reason: muscle spasm) Qty: 20 0RF cyclobenzaprine 10 mg tablet 10 mg PO Q8H Qty: 20 0RF ibuprofen 600 mg tablet 600 mg PO Q6H PRN (Reason: pain) Qty: 20 0RF amoxicillin 500 mg capsule 500 mg PO BID 7 Days Qty: 14 0RF ondansetron 4 mg tablet,disintegrating 4 mg PO Q8H PRN (Reason: nausea and vomiting) Qty: 20 0RF
[2023-07-20] MEDS: Acetaminophen 325 MG TABLET 975 MG PO (16:41)
[2023-07-20] MEDS: Ibuprofen 600 MG TABLET PO (16:41)
--- NOTE | 2023-07-20 18:58 | PC.NURSE ---
Patient presenting with neck, shoulder, and back pain that started this morning at approximately 4 am. Patient had not taken any medications until given ibuprofen in ED. Patient calm and cooperative, answering questions appropriately.
[2023-07-20 21:02] VITALS: BP 118/72; PULSE 56; RESP 19; O2SAT 100
== END 2023-07-20 21:04 | disposition home or self-care (01) ==
PROVIDERS: Emergency Provider Emergency Medicine
DX: S16.1XXA Strain of muscle, fascia and tendon at neck level, initial encounter (principal); X50.0XXA Overexertion from strenuous movement or load, initial encounter; Y93.B3 Activity, free weights; Y92.9 Unspecified place or not applicable; Y99.9 Unspecified external cause status
CPT/HCPCS: 72040; 99283; 99284

== ENCOUNTER 2023-12-14 18:27 | Emergency (ER) | payer OTHER, SELFPAY ==
--- NOTE | ~2023-12-14 | XR_ITS ---
EXAMINATION: XR FOOT, LEFT CLINICAL INFORMATION: Pain. COMPARISON: None available. TECHNIQUE: AP, lateral, and oblique views of the left foot. FINDINGS: No fracture or subluxation. Mild hallux valgus deformity with trace joint space narrowing and subcortical sclerosis of the first MTP. No significant soft tissue abnormality. XR/XR foot LT min 3V IMPRESSION: 1. No acute fractures or malalignment. 2. 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
[2023-12-14 19:09] VITALS: BP 116/76; PULSE 69; RESP 18; TEMP 37; O2SAT 99; BMI 23.1
--- NOTE | 2023-12-14 19:09 | ED.EXTPRO ---
HPI - Extremity Problem General Chief complaint: Extremity Problem Stated complaint: left foot pain/couple months getting worse Related Data Previous Rx's ?Medication ?Instructions ?Recorded acetaminophen 500 mg tablet 500 mg PO Q6H PRN pain or fever 05/13/21 (Tylenol Extra Strength) #20 tabs lidocaine 5 % topical patch 1 patch topical DAILY PRN pain #30 05/13/21 (Lidoderm) ea naproxen 500 mg tablet 500 mg PO BID PRN pain 10 days #20 05/13/21 tabs cyclobenzaprine 10 mg tablet 10 mg PO TID PRN muscle spasm #20 06/01/21 tabs ibuprofen 800 mg tablet 800 mg PO Q8H PRN pain #30 tabs 06/01/21 cyclobenzaprine 10 mg tablet 10 mg PO Q8H #20 tabs 11/18/21 ibuprofen 600 mg tablet 600 mg PO Q6H PRN pain #20 tabs 11/18/21 amoxicillin 500 mg capsule 500 mg PO BID 7 days #14 caps 03/25/22 ondansetron 4 mg disintegrating 4 mg PO Q8H PRN nausea and 04/21/23 tablet vomiting #20 tabs cyclobenzaprine 10 mg tablet 10 mg PO TID PRN muscle spasm #10 07/20/23 tabs ibuprofen 600 mg tablet 600 mg PO Q8H PRN fever or pain 07/20/23 #14 tabs Allergies Allergy/AdvReac Type Severity Reaction Status Date / Time No Known Allergies Allergy Verified 11/17/21 23:48 PMFSH Past Medical History Medical History No pertinent past medical history Social History Social History Patient Tobacco Use Status: Never used Tobacco Advance Directives: No Advance Directives Information Provided: No Physical Exam Vital Signs: Vital Signs: Last Vital Signs Temp 98.6 F 12/14/23 19:09 Pulse 69 12/14/23 19:09 Resp 18 12/14/23 19:09 BP 116/76 12/14/23 19:09 Pulse Ox 99 12/14/23 19:09 O2 Del Method Room Air 12/14/23 19:09 BMI result Body Mass Index 23.1 Course Course Course Narrative: This is a Rapid Medical Examination (RME) in triage, full HPI, ROS, assessment and plan per primary provider in the Main ED. Azeem is a 22 year old male presenting today for evaluation for left plantar pain worsening over the past week. Reports that he has had this pain for over a year. Works on his feet daily. Pain occasionally travels up his left lower extremity. Pain is exacerbated with use of basketball shoes. Plan: x ray of left foot Discharge Plan Discharge Clinical Impression: Chronic foot pain Patient Disposition: Left W/O Completing Treatment Prescriptions: No Action acetaminophen [Tylenol Extra Strength] 500 mg tablet 500 mg PO Q6H PRN (Reason: pain or fever) Qty: 20 0RF lidocaine [Lidoderm] 5 % adhesive patch,medicated 1 patch topical DAILY MDD remove after 12 hours PRN (Reason: pain) Qty: 30 0RF Rx Instructions: leave on most painful area for up to 12 hrs naproxen 500 mg tablet 500 mg PO BID PRN (Reason: pain) 10 Days Qty: 20 0RF ibuprofen 800 mg tablet 800 mg PO Q8H PRN (Reason: pain) Qty: 30 0RF cyclobenzaprine 10 mg tablet 10 mg PO TID PRN (Reason: muscle spasm) Qty: 20 0RF cyclobenzaprine 10 mg tablet 10 mg PO Q8H Qty: 20 0RF ibuprofen 600 mg tablet 600 mg PO Q6H PRN (Reason: pain) Qty: 20 0RF amoxicillin 500 mg capsule 500 mg PO BID 7 Days Qty: 14 0RF ondansetron 4 mg tablet,disintegrating 4 mg PO Q8H PRN (Reason: nausea and vomiting) Qty: 20 0RF ibuprofen 600 mg tablet 600 mg PO Q8H PRN (Reason: fever or pain) Qty: 14 0RF cyclobenzaprine 10 mg tablet 10 mg PO TID PRN (Reason: muscle spasm) Qty: 10 0RF Rx Instructions: Do not use this medication before working or driving Discharge Date/Time: 12/15/23 01:30 Print Language: Tristanian
== END 2023-12-15 01:30 | disposition left against medical advice (07) ==
LOC: HO.ED 12-15 01:28
PROVIDERS: Emergency Provider Emergency Medicine
DX: M79.672 Pain in left foot (principal); G89.29 Other chronic pain
CPT/HCPCS: 73630; 99281; 99283

== ENCOUNTER 2024-01-12 17:02 | Emergency (ER) | payer OTHER, SELFPAY ==
--- NOTE | ~2024-01-12 | XR_ITS ---
EXAMINATION: XR FOOT, LEFT CLINICAL INFORMATION: Pain COMPARISON: Previous x-ray December 2023 TECHNIQUE: AP, lateral, and oblique views of the left foot. FINDINGS: Mild hallux valgus deformity at the first MTP joint. Bone alignment is otherwise normal. No fracture or dislocation. Joint spaces are otherwise normal. Soft tissues are normal. XR/XR foot LT min 3V IMPRESSION: Mild hallux valgus deformity at the first MTP joint.
[2024-01-12 17:33] VITALS: BP 112/69; PULSE 70; RESP 18; TEMP 36.3; O2SAT 96; BMI 23.3
--- NOTE | 2024-01-12 17:34 | ED_ITS ---
HPI - General Adult General Chief complaint: Extremity Injury, Lower Stated complaint: L foot pain Time Seen by Provider: 01/12/24 18:31 Source: patient Mode of arrival: ambulatory Limitations: no limitations History of Present Illness HPI narrative: 23-year-old male presented right foot pain for few months, pain is localized to the bottom of the foot more with walking, pain is worse early in the morning when he gets out of bed taking the 1st steps on his sole, patient has been trying ice and elevation with no relief. No foot trauma or injury. Related Data Previous Rx's ?Medication ?Instructions ?Recorded acetaminophen 500 mg tablet 500 mg PO Q6H PRN pain or fever 05/13/21 (Tylenol Extra Strength) #20 tabs lidocaine 5 % topical patch 1 patch topical DAILY PRN pain #30 05/13/21 (Lidoderm) ea naproxen 500 mg tablet 500 mg PO BID PRN pain 10 days #20 05/13/21 tabs cyclobenzaprine 10 mg tablet 10 mg PO TID PRN muscle spasm #20 06/01/21 tabs ibuprofen 800 mg tablet 800 mg PO Q8H PRN pain #30 tabs 06/01/21 cyclobenzaprine 10 mg tablet 10 mg PO Q8H #20 tabs 11/18/21 ibuprofen 600 mg tablet 600 mg PO Q6H PRN pain #20 tabs 11/18/21 amoxicillin 500 mg capsule 500 mg PO BID 7 days #14 caps 03/25/22 ondansetron 4 mg disintegrating 4 mg PO Q8H PRN nausea and 04/21/23 tablet vomiting #20 tabs cyclobenzaprine 10 mg tablet 10 mg PO TID PRN muscle spasm #10 07/20/23 tabs ibuprofen 600 mg tablet 600 mg PO Q8H PRN fever or pain 07/20/23 #14 tabs Allergies Allergy/AdvReac Type Severity Reaction Status Date / Time No Known Allergies Allergy Verified 01/12/24 17:37 Review of Systems Review of Systems: All other systems are reviewed and are negative Constitutional: Reports as per HPI and Reports no additional constitutional complaints Eyes: Reports as per HPI and Reports no additional eye complaints Reports system reviewed and no additional complaints, except as documented Cardiovascular: Reports as per HPI and Reports no additional cardiovascular complaints Respiratory: Reports as per HPI and Reports no additional respiratory complaints Gastrointestinal: Reports as per HPI and Reports no additional gastrointestinal complaints Genitourinary: Reports no additional female genitourinary complaints Musculoskeletal: Reports no additional musculoskeletal complaints Skin/Breast: Reports system reviewed and no additional complaints, except as docu Psychiatric: Reports no additional psychiatric complaints Endocrine: Reports no additional endocrine complaints Hematologic/Lymphatic: Reports no additional hematologic/lymphatic complaints Allergic/Immunologic: Reports no additional allergic/immunologic complaints Reports system reviewed and no additional complaints, except as documented and Reports Abnormal speech present [facility] Past Medical History Medical History No pertinent past medical history Social History Social History Patient Tobacco Use Status: Never used Tobacco Physical Exam ED Vital Signs: Vital Signs - 24 hr 01/12/24 17:33 Temperature 97.4 F Pulse Rate 70 Respiratory Rate 18 Blood Pressure 112/69 Pulse Oximetry 96 Oxygen Delivery Method Room Air BMI result Body Mass Index 23.3 Vital signs have been reviewed and appear to be correct. Blood pressure elevated. Heart rate normal. Respiratory rate normal. Temperature normal. Oxygen saturation normal. Appearance: Alert. Oriented X3. No acute distress. Head: Normal external exam. Normocephalic. Atraumatic. No Burt signs noted. No raccoon eyes noted Eyes: PERRLA. EOMI. Conjunctiva and sclera normal. Eyelids normal. ENT: TM's Normal. Pharynx normal. Uvula midline. Moist mucous membranes. No trismus noted. No drooling noted. No muffled voice noted. Neck: Normal inspection. Neck supple. FROM. No adenopathy. Thyroid Normal. No meningeal signs. No neck mass noted. CVS: Normal heart rate and rhythm. Heart sound normal. No murmurs noted. Pulses normal throughout. Respiratory: No respiratory distress. Painless inspiration. Breath sounds normal. No wheezes/rales/rhonchi noted. Chest nontender. No accessory muscle usage noted or decreased air movement noted. Abdomen: Soft and nontender. Bowel sounds normal in all 4 quadrants. No distention noted. No organomegaly noted. No visible injury noted. Back: No CVA tenderness. Full range of motion noted. Skin: Skin warm and dry. Normal skin color. Normal skin turgor. No rashes/lesions/lacerations noted. Extremities: right foot exam: Normal neurovascular exam, tenderness over plantar fasciitis that is relieved by dorsiflexion. Neuro: Oriented X 3. Cranial nerve exam: II-XII are grossly intact No motor deficit. No sensory deficit. Reflexes normal. Course Course Course Narrative: RME- 23 year old male presents for evaluation of left foot pain to the bottom of the foot for the last few months Reevaluation(s) Reevaluation #1: physical exam is consistent with plantar fasciitis patient was instructed to do a plantar stretching exercises, ice compression, use arch supported shoe, use NSAIDs if needed and follow-up with drawing supervisor. Time: 18:46 Medical Decision Making Differential Diagnosis Differential Diagnoses: The differential diagnosis associated with the presentation includes ( Foot fracture, arthritis, plantar fasciitis.) Admission/Observation Consideration of admission/observation: Escalation of care including admission/observation considered Independent Interpretation I performed an independent interpretation of an: Plain X-Ray ( Right foot: No acute fracture) Radiology Impression Discussion of test interpretation with radiology: I have reviewed the radiologi st's reading. Discharge Plan Discharge Prescriptions: No Action acetaminophen [Tylenol Extra Strength] 500 mg tablet 500 mg PO Q6H PRN (Reason: pain or fever) Qty: 20 0RF lidocaine [Lidoderm] 5 % adhesive patch,medicated 1 patch topical DAILY MDD remove after 12 hours PRN (Reason: pain) Qty: 30 0RF Rx Instructions: leave on most painful area for up to 12 hrs naproxen 500 mg tablet 500 mg PO BID PRN (Reason: pain) 10 Days Qty: 20 0RF ibuprofen 800 mg tablet 800 mg PO Q8H PRN (Reason: pain) Qty: 30 0RF cyclobenzaprine 10 mg tablet 10 mg PO TID PRN (Reason: muscle spasm) Qty: 20 0RF cyclobenzaprine 10 mg tablet 10 mg PO Q8H Qty: 20 0RF ibuprofen 600 mg tablet 600 mg PO Q6H PRN (Reason: pain) Qty: 20 0RF amoxicillin 500 mg capsule 500 mg PO BID 7 Days Qty: 14 0RF ondansetron 4 mg tablet,disintegrating 4 mg PO Q8H PRN (Reason: nausea and vomiting) Qty: 20 0RF ibuprofen 600 mg tablet 600 mg PO Q8H PRN (Reason: fever or pain) Qty: 14 0RF cyclobenzaprine 10 mg tablet 10 mg PO TID PRN (Reason: muscle spasm) Qty: 10 0RF Rx Instructions: Do not use this medication before working or driving Print Language: Ukrainian
--- OUTSIDE RECORDS SUMMARY | 2024-01-12 18:55 | XMS_ITS | Continuity of Care Document ---
Author Organization [facility] ter Address [address] [place] [id number]- Care Team Providers Care Silver Chaser Name Role Phone Not on Staff, PCP Primary Care Physician Unavail able Encounter [facility] [place] Date(s): 11/17/21 - 11/17/[address] [address]- Discharge Disposition: A-Error Chart/Home (ED Only) Attending Physician: Dejan Larry MD Admitting Physician: Dejan Larry MD Referring Physician: Not on Staff, Referring MD Allergies, Adverse Reactions, Alerts No Known Allergies Vital Signs Most recent to oldest [Reference Range]: 1 Oxygen Saturation [94-100 %] 99 % (11/17/21 6:36 PM) Pulse Rate [55-90 bpm] 91 bpm *H* (11/17/21 6:36 PM)
[2024-01-12 20:06] VITALS: BP 112/69; PULSE 70; RESP 18; TEMP 36.3; O2SAT 96
== END 2024-01-12 20:06 | disposition home or self-care (01) ==
PROVIDERS: Emergency Provider Emergency Medicine
DX: M72.2 Plantar fascial fibromatosis (principal); M79.672 Pain in left foot
CPT/HCPCS: 73630; 99282; 99283

== ENCOUNTER 2024-03-01 20:46 | Emergency (ER) | payer OTHER, SELFPAY ==
[2024-03-01 20:52] VITALS: BP 128/76; PULSE 69; RESP 18; TEMP 36.9; O2SAT 98; BMI 23.7
--- NOTE | 2024-03-01 21:16 | PC.NURSE ---
pt awaiting to be seen.
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
[2024-03-01 22:14] VITALS: BP 116/72; PULSE 72; RESP 16; TEMP 36.7; O2SAT 98
[2024-03-01 22:15] VITALS: BP 116/72; PULSE 72; RESP 16; TEMP 36.7; O2SAT 98
== END 2024-03-01 22:16 | disposition home or self-care (01) ==
PROVIDERS: Emergency Provider Internal Medicine
DX: G89.29 Other chronic pain (principal); M54.50 Low back pain, unspecified; M72.2 Plantar fascial fibromatosis; Z79.899 Other long term (current) drug therapy; Z79.1 Long term (current) use of non-steroidal anti-inflammatories (NSAID)
CPT/HCPCS: 99283

== ENCOUNTER 2025-07-21 20:31 | Emergency (ER) | payer SELFPAY ==
[2025-07-21 20:36] VITALS: BP 114/71; PULSE 54; RESP 18; TEMP 36.7; O2SAT 98; BMI 24.0
--- NOTE | 2025-07-21 20:37 | ED_ITS ---
HPI - General Adult General Chief complaint: Back Pain/Injury Stated complaint: back pain/numb left leg Time Seen by Provider: 07/21/25 20:45 Source: patient and RN notes reviewed Mode of arrival: ambulatory Limitations: no limitations History of Present Illness HPI narrative: 24-year-old male who has had a history of back pain and plantar fasciitis, presents for evaluation of left low back pain. Patient states he has had baseline pain however 2 days ago he picked up a box at work and had increased pain. Since that time it is localized to the left low back. It is worse with movement. He is now having intermittent tingling down the left leg. He has had a history of similar symptoms before. He has tried ibuprofen with minimal relief. He denies any bowel or bladder incontinence. No direct trauma. He is otherwise feeling well. Related Data Previous Rx's ?Medication ?Instructions ?Recorded acetaminophen 500 mg tablet 500 mg PO Q6H PRN pain or fever 05/13/21 (Tylenol Extra Strength) #20 tabs lidocaine 5 % topical patch 1 patch topical DAILY PRN pain #30 05/13/21 (Lidoderm) ea naproxen 500 mg tablet 500 mg PO BID PRN pain 10 da ys #20 05/13/21 tabs cyclobenzaprine 10 mg tablet 10 mg PO TID PRN muscle s pasm #20 06/01/21 tabs ibuprofen 800 mg tablet 800 mg PO Q8H PRN pain #30 t abs 06/01/21 cyclobenzaprine 10 mg tablet 10 mg PO Q8H #20 tabs 05/04 ibuprofen 600 mg tablet 600 mg PO Q6H PRN pain #20 t abs 11/18/21 amoxicillin 500 mg capsule 500 mg PO BID 7 days #14 ca ps 03/25/22 ondansetron 4 mg disintegrating 4 mg PO Q8H PRN nausea and 04/21/23 tablet vomiting #20 tabs cyclobenzaprine 10 mg tablet 10 mg PO TID PRN muscle s pasm #10 07/20/23 tabs ibuprofen 600 mg tablet 600 mg PO Q8H PRN fever or p ain 07/20/23 #14 tabs ibuprofen 600 mg tablet 600 mg PO Q6H PRN fever or p ain 03/01/24 #30 tabs dexamethasone 2 mg tablet 2 mg PO BID #10 tabs 5 methocarbamol 750 mg tablet 750 mg PO TID PRN muscle s pasm #20 07/21/25 tabs Allergies Allergy/AdvReac Type Severity Reaction Status Date / Time No Known Allergies Allergy Verified 07/21/25 20:38 Review of Systems Review of Systems: Yes all other systems are reviewed and are negative Gastrointestinal: Gastrointestinal: Denies abdominal pain Musculoskeletal: Musculoskeletal: Reports back pain PMFSH Past Medical History Medical History No pertinent past medical history Social History Social History Patient Tobacco Use Status: Never used Tobacco Advance Directives: No Advance Directives Information Provided: Yes Do you have a plan to hurt others: No Plan Physical Exam ED Vital Signs: Vital Signs - 24 hr 07/21/25 20:36 Temperature 98.0 F Pulse Rate 54 Respiratory Rate 18 Blood Pressure 114/71 Pulse Oximetry 98 Oxygen Delivery Method Room Air BMI result Body Mass Index 24.0 Neck Other: No spinous, paraspinous or paravertebral tenderness. Resp Other: Lung sounds clear throughout Cardio Rate: regular rate Rhythm: regular rhythm Back/Spine/Pelvis Other: Records Management Analyst is 5/5 bilaterally. Full range of motion of all extremities. Negative straight leg test. There is mild left sciatic notch tenderness. Negative right sciatic notch tenderness. There is mild diffuse lumbar tenderness with mild spasm of the left. Worse with twisting. No ecchymosis or lesions noted. Medical Decision Making Medical Decision Making MDM Narrative: 24-year-old male appears to have acute on chronic exacerbation of left low back pain with mild left-sided sciatica. Consideration for imaging however deferred at this time. Patient agreeable with symptomatic treatment, continue ibuprofen, add Robaxin and course of Decadron. Patient expresses understanding of all discharge instructions and has no further questions at this time. Differential Diagnosis Differential Diagnoses: The differential diagnosis associated with the presentation includes Disc herniation Sciatica Muscle spasm Nerve impingement Discharge Plan Discharge Clinical Impression: Lumbar strain, Sciatic pain Patient Disposition: Home, Self-Care Instructions: Sciatica (ED), Low Back Strain (ED) Additional Instructions: Rest. Avoid strenuous activity. Warm compresses. Gentle stretching. Continue Tylenol or ibuprofen. Take with food. Robaxin as directed for pain and muscle spasm. Decadron as directed for pain. This is a steroid. Follow-up with your primary care provider. Call this week to schedule a follow- up appointment. Return to the emergency department if you have any worsening of symptoms, or any concerns. Get well soon! Prescriptions: New methocarbamol 750 mg tablet 750 mg PO TID PRN (Reason: muscle spasm) Qty: 20 0RF dexamethasone 2 mg tablet 2 mg PO BID Qty: 10 0RF No Action acetaminophen [Tylenol Extra Strength] 500 mg tablet 500 mg PO Q6H PRN (Reason: pain or fever) Qty: 20 0RF lidocaine [Lidoderm] 5 % adhesive patch,medicated 1 patch topical DAILY MDD remove after 12 hours PRN (Reason: pain) Qty: 30 0RF Rx Instructions: leave on most painful area for up to 12 hrs naproxen 500 mg tablet 500 mg PO BID PRN (Reason: pain) 10 Days Qty: 20 0RF ibuprofen 800 mg tablet 800 mg PO Q8H PRN (Reason: pain) Qty: 30 0RF cyclobenzaprine 10 mg tablet 10 mg PO TID PRN (Reason: muscle spasm) Qty: 20 0RF cyclobenzaprine 10 mg tablet 10 mg PO Q8H Qty: 20 0RF ibuprofen 600 mg tablet 600 mg PO Q6H PRN (Reason: pain) Qty: 20 0RF amoxicillin 500 mg capsule 500 mg PO BID 7 Days Qty: 14 0RF ondansetron 4 mg tablet,disintegrating 4 mg PO Q8H PRN (Reason: nausea and vomiting) Qty: 20 0RF ibuprofen 600 mg tablet 600 mg PO Q8H PRN (Reason: fever or pain) Qty: 14 0RF cyclobenzaprine 10 mg tablet 10 mg PO TID PRN (Reason: muscle spasm) Qty: 10 0RF Rx Instructions: Do not use this medication before working or driving ibuprofen 600 mg tablet 600 mg PO Q6H PRN (Reason: fever or pain) Qty: 30 0RF Stand Alone Forms: Work/School Release Print Language: Faroese
[2025-07-21 20:57] VITALS: BP 114/71; PULSE 54; RESP 18; TEMP 36.7; O2SAT 98
--- OUTSIDE RECORDS SUMMARY | 2025-07-21 20:58 | XMS_ITS | Clinical Summary ---
Author Organization [facility] [facility] ity Address [address] [place] [address] Care Team Providers Care Technical Trainer Name Role Phone Unavailable Primary Care Provider Unavailabl e Social History Tobacco Use Types Packs/Day Years Used Date Smoking Tobacco: Never Assessed Sex and Gender Information Value Date Recorded Sex Assigned at Not on file Legal Sex Male 6:51 PM EST Gender Identity Not on file Sexual Orientation Not on file Plan of Treatment Health Maintenance Due Date Last Done Comments HPV Vaccines (1 - Male 3-dos e series) 2013 DTaP,Tdap,and Td Vaccines (1 - Tdap) 2017 Hepatitis B Vaccines (1 of 3 - 19+ 3-dose series) 2017 Depression Screening 09/13/2024 COVID-19 Vaccine (1 - 2023-2 5 season) 2025 Influenza Vaccine (#1) 2025 RSV Immunization Adult Patie nts (1 - 1-dose 75+ series) 2073 HIB Vaccines Aged Out No longer eligi ble based on patient's age to complete this topic Hepatitis A Vaccines Aged Out No long er eligible based on patient's age to complete this topic IPV Vaccines Aged Out No longer eligi ble based on patient's age to complete this topic MMR Vaccines Aged Out No longer eligi ble based on patient's age to complete this topic Meningococcal ACWY Vaccine Aged Out N o longer eligible based on patient's age to complete this topic Meningococcal B Vaccine Aged Out No l onger eligible based on patient's age to complete this topic Pneumococcal Vaccine: Pediat rics (0 to 5 Years) and At-Risk Patients (6 to 49 Years) Aged Out No longer eligible b ased on patient's age to complete this topic RSV Immunization Patients Un holly 20 months Aged Out No longer eligible b ased on patient's age to complete this topic Varicella Vaccines Aged Out No longer eligible based on patient's age to complete this topic
== END 2025-07-21 20:57 | disposition home or self-care (01) ==
PROVIDERS: Emergency Provider Emergency Medicine
DX: S39.012A Strain of muscle, fascia and tendon of lower back, initial encounter (principal); M54.42 Lumbago with sciatica, left side; X50.9XXA Other and unspecified overexertion or strenuous movements or postures, initial encounter; Y93.9 Activity, unspecified; Y92.89 Other specified places as the place of occurrence of the external cause; Y99.0 Civilian activity done for income or pay
CPT/HCPCS: 99283; 99284